=== PATIENT | female | born 1995 | race American Indian/Alaskan Native ===

== ENCOUNTER 2021-12-11 07:30 | Inpatient (IN) | payer OTHER ==
[2021-12-10 11:24] LABS: Hematocrit 34.3 % (30.3-42.9); Hemoglobin 11.2 gm/dl (10.1-14.3); Mean Corpuscular HGB Conc 33 % (30-34); Mean Corpuscular Volume 71 fl (79-97); Platelet Count 220 K/mm3 (140-440); Red Blood Count 4.87 M/mm3 (3.65-5.03); Red Cell Distribution Width 15.2 % (13.2-15.2)
--- NOTE | 2021-12-10 22:15 | History and Physical Report ---
History of Present Illness Date of examination: 12/07/21 History of present illness: Patient admitted for repeat section. Patient informed the risks of the surgery include bleeding possibly bleeding heavy enough to require blood transfusion, infection possible damage to bowel bladder ureter. Patient understands that due to her previous surgery she is an increased risks of adjacent organ damage. Patient's questions answered. Patient understands and desires to proceed. Menstrual History Regularity: regular Menses every: 28 days Duration: 4 LMP: 03/13/2021 LMP reliability: definite test type: urine test Date: 04/13/2021 BC at conception: BCP Planned ? no EDC Calculations LMP: 12/18/2021 EDC Confirmation: 12/18/2021 Past History : 3 Term Births: 1 Premature Births: 1 Living Children: 2 Para: 2 Mult. Births: 0 Prev : 1 Aborta: 0 Elect. Ab: 0 Spont. Ab: 0 Ectopics: 0 # 1 Delivery date: 10/12/2016 Weeks Gestation: 32 Delivery type: Anesthesia type: spinal Delivery location: [place] Sex: Female weight: 2-11 Name: Jasmina Comments: Pre-eclampsia # 2 Delivery date: 05/08/2019 Weeks Gestation: 39 labor: no Delivery type: Hours of labor: 25 Anesthesia type: epidural Delivery location: [place] Infant Sex: Female weight: 6-12 Name: Nevin Past Medical History: Negative Past Medical History Past Surgical History: (2016) Family History Summary: Other Family Member - Has No Family History of Ovarvian Cancer - Entered On: 08/31/2021 Other Family Member - Has No Family History of Colon Cancer - Entered On: 08/31/2021 Other Family Member - Has No Family History of Breast Cancer - Entered On: 08/31/2021 Social History: Marital Status: Single Children: 2 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 Infection History Hx of STD: chlamydia HIV Risk Eval: low risk Hepatitis B Risk Eval: low risk Personal hx. of genital herpes: no Genetic History Congenital Heart Defect: Mom: no Dad: no Rosalba Disease: Mom: no Dad: no Thalassemia Mom: no Dad: no Neural Tube Defect Mom: no Dad: no Down's Syndrome Mom: no Dad: no Ti-Sachs Mom: no Dad: no Sickle Cell Disease/Trait Mom: no Dad: no Hemophilia Mom: no Dad: no Muscular Dystrophy Mom: no Dad: no Cystic Fibrosis Mom: no Dad: no Stewart Chorea Mom: no Dad: no Mental Retardation Mom: no Dad: no Fragile X Mom: no Dad: no Other Genetic/Chromosomal Disorder Mom: no Dad: no Child w/other defect Mom: no Dad: no Enviromental Exposures Xray Exposure: no Medication, drug, or alcohol use since LMP: no Chemical/Other Exposure: no Exposure to Cat Liter: no Current Allergies (reviewed today): No known allergies Past History Past Medical History: other (SEE HPI) Past Surgical History: section, other (SEE HPI) 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) Family/Genetic History: other (SEE HPI) Social history: other (SEE HPI) - Obstetrical History Expected Date of Delivery: 12/18/21 Actual Gestation: 39 Week(s) 0 Day(s) : 3 Para: 2 Hx # Term Pregnancies: 1 Number of Pregnancies: 1 Spontaneous Abortions: 0 Induced : 0 Number of Living Children: 2 Medications and Allergies Allergies Allergy/AdvReac Type Severity Reaction Status Date / Time No Known Allergies Allergy Verified 12/10/21 22:32 Home Medications Medication Instructions Recorded Confirmed Last Taken Type Aspirin [Aspirin BABY CHEW TAB] 81 mg PO QDAY 12/01/21 12/11/21 12/09/21 History Vit-Fe Fumar-FA [ 1 tab PO QDAY 12/01/21 12/11/21 12/09/21 History Vitamin] Review of Systems Constitutional: other (SEE HPI) - Vital Signs Vital signs: Vital Signs Temp Pulse Resp BP Pulse Ox 98.0 F 59 L 16 107/81 98 12/10/21 10:55 12/10/21 10:55 12/10/21 10:55 12/10/21 10:55 12/10/21 10:55 Temp Pulse Resp BP Pulse Ox 98.0 F 59 L 16 107/81 98 12/10/21 10:55 12/10/21 10:55 12/10/21 10:55 12/10/21 10:55 12/10/21 10:55 - Physical Exam Breasts: Positive: deferred Cardiovascular: Regular rate Abdomen: Positive: normal appearance, soft Genitourinary (Female): Positive: normal external genitalia Vagina: Positive: normal moisture. Negative: discharge Cervix: Negative: lesion, discharge Uterus: Positive: enlarged Anus/Rectum: Positive: normal perianal skin Extremities: Positive: other, edema Results Result Diagrams: 12/10/21 11:14 Abnormal lab results 12/10/21 Range/Units 11:14 MCV 71 L (79-97) fl MCH 23 L (28-32) pg All other labs normal. Assessment and Plan - Patient Problems (1) Previous delivery affecting , antepartum Current Visit: No Status: Acute Plan to address problem: Discuss the risks of the surgery including infection, bleeding possibly heavy enough to require a blood transfusion, possible damage to bowel, bladder or ureter. Her questions were answered. Patient understands and desires to proceed
[~2021-12-11 07:30] MED LIST: BICITRA ORAL LIQD 30ML PO ONE; FAMOTIDINE 20 MG/2 ML INJ IV ONE; METOCLOPRAMIDE 10 MG/2 ML INJ IV ONE; ceFAZolin/Water 2 GM/20 ML 2 GM/20 ML SYRINGE IV NR
[2021-12-11] MEDS ORDERED: OXYTOCIN DRIP 60,000 MILLIUNITS/1,000 ML BAG IV ONE (08:06)
[2021-12-11] MEDS ORDERED: miSOPROStol 200 MCG TAB ONE (08:06)
[2021-12-11] MEDS ORDERED: CARBOPROST TROMETHAMINE 250 MCG/1 ML INJ IM ONE (08:07)
[2021-12-11] MEDS ORDERED: OXYTOCIN 10 UNIT/1 ML INJ ONE (08:07)
[2021-12-11] MEDS ORDERED: METHYLERGONOVINE MALEATE 0.2 MG/ML VIAL IM ONE (08:07)
[2021-12-11] MEDS: LACTATED RINGERS 1,000 ML IV SCH ×2 (08:31→08:59)
[2021-12-11] MEDS ORDERED: BUPIVACAINE/PF (0.5%) 5 MG/1 ML 30 ML VIAL INFILTRATI ONE (09:28)
[2021-12-11] MEDS ORDERED: ONDANSETRON 4 MG/2 ML INJ ONE (09:32)
[2021-12-11] MEDS ORDERED: SODIUM CHLORIDE 0.9% IRR 1,500 ML BOTTLE IR ONE (09:45)
[2021-12-11] MEDS ORDERED: WATER FOR IRRIG STERILE 1,500 ML BOTTLE IR ONE (09:45)
[2021-12-11] MEDS ORDERED: ceFAZolin/STERILE WATER 2 GM/20 ML SYRINGE IV ONE (09:45)
[2021-12-11] MEDS ORDERED: PHENYLEPHRINE 10 MG/1 ML INJ SDV ONE (09:59)
--- NOTE | 2021-12-11 10:18 | Anesthesia Day of Surgery ---
Anesthesia Day of Surgery - Day of Surgery Patient Examined: Yes Patient H&P Reviewed: Yes Patient is NPO: Yes
--- NOTE | 2021-12-11 10:19 | Anesthesia Consultation ---
Anesthesia Consult and Med Hx Date of service: 12/11/21 - Airway Anesthetic Teeth Evaluation: Good ROM Head & Neck: Adequate Mental/Hyoid Distance: Adequate Mallampati Class: Class II Intubation Access Assessment: Good - Pulmonary Exam CTA: Yes - Cardiac Exam Cardiac Exam: RRR - Pre-Operative Health Status ASA Pre-Surgery Classification: ASA2 Proposed Anesthetic Plan: Spinal - Pulmonary Hx Smoking: No Hx Asthma: No Hx Sleep Apnea: No - Cardiovascular System Hx Hypertension: No - Central Nervous System Hx Seizures: No Hx Psychiatric Problems: Yes - Endocrine Hx Renal Disease: No Hx Hypothyroidism: No Hx Hyperthyroidism: No - Hematic Hx Anemia: No Hx Sickle Cell Disease: No - Other Systems Hx Alcohol Use: No Hx Substance Use: No Hx Cancer: No
--- NOTE | 2021-12-11 10:24 | Progress Note ---
Spinal Anesthesia Block - Spinal Anesthesia Block Start Time: :40 Stop Time: :42 Performed by:: YVONNE LÓPEZ Procedure: Patient IDed, H&P reviewed, all questions and concerns were answered, and consent was signed. Timeout was performed at bedside. Patient in sitting position. Sterile prep and drape was performed. [3] ml of 1% lidocaine skin wheal at L[3]- L [4]. Needle introducer advanced. 25 gauge spinal needle advanced. Clear, free flowing CSF. negative blood, negative paresthesia. Spinal dose given. All needles removed. Patient tolerated procedure.
[2021-12-11] MEDS ORDERED: dexAMETHasone 20 MG/5 ML VIAL ONE (10:35)
[2021-12-11] MEDS ORDERED: KETOROLAC 30 MG/1 ML INJ ONE (10:38)
[2021-12-11] MEDS ORDERED: SODIUM CHLORIDE 0.9% 100 ML ONE (10:38)
--- NOTE | 2021-12-11 10:49 | Operative Report ---
Operative Report Operative Report: Date of procedure: December 11, 2021 Pre-operative diagnosis: Intrauterine at 39 weeks with previous section Post-operative diagnosis: Same Procedure name(s): Repeat low-transverse section Surgeon: Shravan Coreas MD Operations Associate: FRANK Anesthesia: Spinal EBL: Quantitative blood loss 800 cc Complications: None Findings: Patient with normal uterus tubes and ovaries bilaterally. Male weight 7 pounds 3 ounces Apgars 8 at 1 minute and 9 at 5 minutes Specimen(s): None Procedure: The patient was brought to the operating room. A spinal was placed without any complications. She was then placed in left lateral tilt. Prepped and draped in the usual sterile manner. After testing for adequate anesthesia level, a Pfannenstiel incision was made through her previous scar. This incision was taken down to the fascia. The fascia was then nicked in the midline. This incision was extended out laterally with Flores scissors. The fascia was then sharply and bluntly from the underlying rectus muscles. The rectus muscles were bluntly and sharply . The peritoneum was then entered with the clothespin drier operator's fingers. This incision was spread vertically with care not to damage the bladder below. The bladder flap was then formed sharply and bluntly with Metzenbaum scissors. The Willy self-retaining tractor was then placed without any difficulty. A transverse incision was made in lower uterine segment. This incision was extended laterally with the operators fingers. The amniotic sac was then entered bluntly with the clothespin drier operator's fingers. The infant was delivered from the vertex position. Bulb suction on the mother's abdomen. Cord was double clamped and cut. The infant was then passed to the nursery personnel who were in attendance. The above scores were given by the nursery personnel. The placenta was then bluntly removed. The uterus was then externalized and wiped clean the remaining products. The uterine incision was closed in layers. The first incision was closed in a locking manner using 0 Vicryl. This was followed by imbricating stitch also with 0 Vicryl. This closure was hemostatic. The bladder flap was copiously irrigated and found to be hemostatic. The pelvis was copiously irrigated and found to be hemostatic. The uterus was then placed back to the patient's abdomen. Surgicel placed along the uterine closure for postoperative hemostasis. The retractors were removed. The rectus muscles were inspected and found to be hemostatic. The fascia was then closed in a running manner using 0 Vicryl. This incision was hemostatic irrigation Bovie. The skin was reapproximated with 4-0 Vicryl subcuticularly. The patient tolerated procedure well. Her urine was clear. The infant was admitted to the [facility] baby nursery. The patient was accompanied to recovery room in good condition. Instrument count correct x3.
--- NOTE | 2021-12-11 11:12 | Progress Note ---
Regional Anesthesia Block - Regional Anesthesia Block Start Time: 10:51 Stop Time: 10:55 Performed By:: YVONNE LÓPEZ Procedure: Patient consented for TAP block for post surgical pain management. Patient identified, monitors placed, and time out performed. TAP identified bilaterally via ultrasound. Skin prepped bilaterally with [chlorhexidine] and [22g stimuplex] needle advanced to the TAP. [Marcaine 0.22% 35ml] injected under ultrasound guidance on the [left] side. [Marcaine 0.22% 35ml] injected under ultrasound guidance on the [right] side. Negative aspiration every 5mL, No change in heart rate or rhythm. Patient tolerated the procedure well. No apparent complications seen.
[2021-12-11] MEDS ORDERED: HYDROCORTISONE 25 MG RECTAL SUPP PR PRN (13:09)
[2021-12-11] MEDS ORDERED: ONDANSETRON 4 MG/2 ML INJ IV PRN (13:09)
[2021-12-11] MEDS ORDERED: NALOXONE 0.4 MG/1 ML INJ IV PRN (13:09)
[2021-12-11] MEDS ORDERED: ACETAMINOPHEN 325 MG TAB PO PRN (13:09)
[2021-12-11] MEDS ORDERED: D5W/LACTATED RINGERS 1,000 ML IV SCH (13:09)
[2021-12-11] MEDS ORDERED: LANOLIN/ZINC/DIMETHICONE (LANSINOH) 7 GM TP PRN (13:09)
[2021-12-11] MEDS ORDERED: MAGNESIUM HYDROXIDE (MOM) ORAL LIQD UDC PO PRN (13:09)
[2021-12-11] MEDS ORDERED: OXYTOCIN DRIP 30 UNITS/500 ML BAG IV SCH (13:09)
[2021-12-11] MEDS ORDERED: WITCH HAZEL/ GLYCERIN PAD TP PRN (13:09)
[2021-12-11] MEDS ORDERED: LACTATED RINGERS 1,000 ML ONE (16:14)
[2021-12-11] MEDS: ceFAZolin/NS 1 GM/50 ML 1 GM/50 ML BAG IV SCH ×2 (17:06→23:24)
[2021-12-11] MEDS: KETOROLAC 30 MG/1 ML INJ IV SCH ×2 (17:07→22:08)
[2021-12-11 23:26] LABS: Hematocrit 28.7 % (30.3-42.9); Hemoglobin 9.3 gm/dl (10.1-14.3)
[2021-12-12] MEDS: SIMETHICONE 80 MG CHEW TAB PO PRN ×3 (01:11→18:25)
[2021-12-12] MEDS: KETOROLAC 30 MG/1 ML INJ IV SCH ×2 (04:47→14:12)
[2021-12-12] MEDS ORDERED: TETANUS,DIPH,PERTUSS(ACELL) VACCINE 0.5 ML SYRINGE IM ONE (06:00)
--- NOTE | 2021-12-12 08:37 | Post Anesthesia Evaluation ---
- Post Anesthesia Evaluation Patient Participated: Yes Airway Patent: Yes Stable Respiratory Function: Yes Nausea/Vomiting: No Temp > 96.8F: Yes Pain Manageable: Yes Adequeate Hydration: Yes Anesthesia Complications: No Block Receding Appropriately: Yes Patient on Ventilator: No
[2021-12-12] MEDS: oxyCODONE /ACETAMINOPHEN 5-325MG TAB PO PRN ×2 (09:05→21:19)
[2021-12-12] MEDS: FERROUS SULFATE 325 MG TAB PO SCH (09:49)
--- NOTE | 2021-12-12 10:35 | Progress Note ---
Assessment and Plan patient doing well, no complaints. incision D&I. H&H 9.3/28.7, anemia from acute blood loss. VSSAF. Lochia scant. encouraged - Patient Problems (1) delivery delivered Current Visit: Yes Status: Acute Plan to address problem: continue postop pathway advance diet and activity as tolerated d/c home tomorrow Subjective - Subjective Date of service: 12/12/21 Principal diagnosis: postop day #1 s/p repeat c/s Patient reports: appetite normal, voiding normally, pain well controlled, flatus, ambulating normally, no dizzy ambulation, no nauseated : doing well, bottle feeding (breast and bottle feeding) Objective - Vital Signs Latest vital signs: Vital Signs Temp Pulse Resp BP BP Pulse Ox Pulse Ox 12/12/21 09:15 98.2 F 80 20 103/63 99 12/12/21 06:00 98 12/12/21 03:15 98 12/12/21 01:10 98 12/11/21 23:25 98 12/11/21 21:55 98 12/11/21 19:50 98 12/11/21 17:48 98.1 F 56 L 18 97/61 96 12/11/21 12:20 97.2 F L 50 L 20 97/52 95 95 12/11/21 12:00 63 16 91/56 99 12/11/21 11:45 97.5 F L 55 L 14 94/55 99 12/11/21 11:30 62 14 101/73 99 12/11/21 11:15 63 13 110/80 100 12/11/21 11:10 61 16 100/64 99 12/11/21 11:05 62 12 110/74 98 12/11/21 11:01 97.3 F L 70 14 106/70 98 Intake and Output 12/11/21 12/12/21 12/12/21 23:59 07:59 15:59 Intake Total 50 310 Output Total 1300 700 Balance -1250 -390 Intake: IV 50 ANCEF/NS 1 GM/50 ML 1 gm 50 In 50 ml @ 100 mls/hr IV Q8H EDGAR Rx#:[id number] Oral 310 Output: Urine 1300 700 Indwelling Catheter 1300 Void 700 Other: Total, Intake Amount 310 Total, Output Amount 1300 500 - Exam Breasts: Present: normal Cardiovascular: Present: Regular rate Lungs: Present: Normal air movement Abdomen: Present: normal appearance, soft Vulva: both: normal Uterus: Present: normal, firm, fundal height below umbilicus Extremities: Present: normal Deep Tendon Reflex Grade: Normal +2 Incision: Present: normal, dry, intact - Labs Labs: Abnormal lab results 12/11/21 Range/Units 22:59 Hgb 9.3 L (10.1-14.3) gm/dl Hct 28.7 L (30.3-42.9) %
[2021-12-12] MEDS ORDERED: MEASLES, MUMPS & RUBELLA 12,500 UNIT/0.5 ML VACCINE SUB-Q ONE (10:58)
[2021-12-13] MEDS: IBUPROFEN 600 MG TAB PO PRN ×2 (01:41→13:14)
[2021-12-13] MEDS: oxyCODONE /ACETAMINOPHEN 5-325MG TAB PO PRN ×2 (06:45→14:09)
--- NOTE | 2021-12-13 11:35 | Discharge Summary ---
Providers - Providers Date of Admission: 12/11/21 07:45 Date of discharge: 12/13/21 Attending physician: ANDERSON CASTRO 12/11/21 13:09 Consult to [employer]inder [CONS] Routine Reason For Exam: Primary care physician: ANDERSON CASTRO Hospitalization Condition: Good Pertinent studies: post op H&H 9.3/28.7, VSSAF Procedures: Day 2 post op repeat section Hospital course: unremarkable Disposition: 01 HOME / SELF CARE / HOMELESS Final Discharge Diagnosis (Prints w/discharge instructions): s/p repeat Time spent for discharge: 20 - Discharge Diagnoses (1) delivery delivered Status: Acute Core Measure Documentation - Palliative Care Palliative Care/ Comfort Measures: Not Applicable - Core Measures Any of the following diagnoses?: none Exam - Physical Exam Narrative exam: Pt stable, day 2 post op, incision clean and dry with glue, fundus firm 2 below U, bleeding scant. Pt desires discharge today - Constitutional Vitals: Temp Pulse Resp BP Pulse Ox 98.0 F 71 18 99/69 99 12/13/21 08:16 12/13/21 08:16 12/13/21 08:16 12/13/21 08:16 12/13/21 08:40 General appearance: Present: no acute distress, well-nourished - EENT Eyes: Present: EOM intact ENT: hearing intact, clear oral mucosa, dentition normal - Neck Neck: Present: normal ROM - Respiratory Respiratory effort: normal - Cardiovascular Rhythm: regular - Extremities Extremities: No edema, Full ROM Peripheral Pulses: within normal limits - Abdominal General gastrointestinal: Present: soft, non-tender, non-distended, normal bowel sounds Female genitourinary: Present: normal - Integumentary Integumentary: Present: clear, warm, dry - Musculoskeletal Musculoskeletal: strength equal bilaterally - Psychiatric Psychiatric: appropriate mood/affect - Neurologic Neurologic: CNII-XII intact Plan Activity: advance as tolerated Diet: regular Wound: open to air, keep clean and dry Follow up with: ANDERSON CASTRO MD [Primary Care Provider] - 7 Days (Congratulations! Please call the office at [phone] to schedule your incision check and your son's circumcision in 1 week. Please bring the emla cream with you to your appointment and wait for instructions. Please call with any questions!) Prescriptions: Lidocain2.5%/Prilocai2.5% [Emla] 5 gm TP ONCE #1 tube Ibuprofen [Motrin] 800 mg PO TID PRN #30 tablet PRN Reason: Pain oxyCODONE /ACETAMINOPHEN [Percocet 5/325 mg] 1 tab PO Q6HR PRN #20 tablet PRN Reason: Pain
[2021-12-13] MEDS: FERROUS SULFATE 325 MG TAB PO SCH (13:13)
[2021-12-13 13:23] VITALS: BP 107/69
== END 2021-12-13 16:02 | disposition home or self-care (01) | DRG 765 ==
LOC: APU 07:45 → OB 12:09
PROVIDERS: ADMIT Obstetrics & Gynecology; ATTEND Obstetrics & Gynecology
PROC: 10D00Z1 Extraction of Products of Conception, Low, Open Approach (ICD-10-PCS; principal; 2021-12-11)
PROC: 3E0T3BZ Introduction of Anesthetic Agent into Peripheral Nerves and Plexi, Percutaneous Approach (ICD-10-PCS; 2021-12-11)
PROC: 3E0234Z Introduction of Serum, Toxoid and Vaccine into Muscle, Percutaneous Approach (ICD-10-PCS; 2021-12-12)
PROC: 3E0134Z Introduction of Serum, Toxoid and Vaccine into Subcutaneous Tissue, Percutaneous Approach (ICD-10-PCS; 2021-12-12)
DX: O34.211 Maternal care for low transverse scar from previous cesarean delivery (principal); D62 Acute posthemorrhagic anemia; Z3A.39 39 weeks gestation of pregnancy; Z37.0 Single live birth; Z23 Encounter for immunization; Z20.822 Contact with and (suspected) exposure to COVID-19; O90.81 Anemia of the puerperium
CPT/HCPCS: 36415; 85014; 85018; 85027; 86592; 86850; 86900; 86901; G0378; J3490; J7060; J7121; C1765; J0690; J1100; J1885; J2370; J2405; J2765; J7120; U0003